=== PATIENT | male | born 1995 | race Caucasian/White ===

== ENCOUNTER → 2022-09-04 13:56 | Outpatient (CLI) | payer MEDICAID, SELFPAY ==
--- NOTE | 2022-09-04 14:43 | CA_ITS ---
APPROVED REPORT Exam: Exercise Treadmill Technologist: Wendy Olea, Ht: 6 ft 0 in Wt: 278 lbs BSA: 2.45 m2 HR: 92 bpm BP: 147/91 mmHg Medical History Medications: Bystolic,,,,, Stress Test Details Test: Fabian HR Resting HR: 100 bpm Max Heart Rate (APMHR): 195.831685 bpm Max HR Achieved: 138 bpm Target HR (85% APMHR): 165.904802 bpm % of APMHR: 70.77 Recovery HR: 98 bpm BP Resting BP: 139.0/89.0 mmHg Max BP: 160.0/75.0 mmHg Recovery BP: 139.0/91.0 mmHg ECG Resting ECG: NSR, 1*AVB Clinical Exercise duration: 08:42 min Highest Stage Achieved: Exercise capacity: 10.1 METs Stress ECG Conclusion Walked 8:42 on Fabian Protocol Max HR: 138 % of PM: 71% Max BP: 160/75 METs: 10.1 Test stopped due to: SOA, Fatigue Symptoms: No CP. Arrhythmias/Ectopy: Rare fusion beat. ST-T Changes: Allowing for motion artifact, the ST response to exercise is within normal. Conclusion: Normal GXT to HR achieved (71% of PM). Blunted HR response on beta amanda. GXT only (no imaging). Test Summary REST . . . . . . . Sitting REST . . . . . . . Standing REST 03:38 0.0 0.0 100 . 139/ 89 . . Stage 1 01:00 10.0 1.7 118 . . . . Stage 1 02:00 10.0 1.7 118 . . . . Stage 1 03:00 10.0 1.7 118 . 154/ 75 . . Stage 2 01:00 12.0 2.5 124 . . . . Stage 2 02:00 12.0 2.5 126 . . . . Stage 2 03:00 12.0 2.5 124 . 158/ 74 . . Stage 3 01:00 14.0 3.4 131 . . . . Stage 3 02:00 14.0 3.4 138 . . . . Stage 3 02:42 14.0 3.4 138 . . . Stop exercise at 08:42 RECOVERY 01:00 0.0 0.0 133 . 160/ 75 . . RECOVERY 02:00 0.0 0.0 103 . 160/ 75 . . RECOVERY 03:00 0.0 0.0 101 . 147/ 90 . . RECOVERY 04:00 0.0 0.0 99 . 141/ 93 . . RECOVERY 05:00 0.0 0.0 98 . 139/ 91 . . RECOVERY 05:30 0.0 0.0 99 . 139/ 91 . . Electronically signed by : Arnol Miranda MD 09/08/2022 10:45:40
== END ==
PROVIDERS: PCP Family Medicine; Visit Provider Nurse Practitioner Family
DX: R07.89 Other chest pain (principal); I10 Essential (primary) hypertension; Z72.0 Tobacco use
CPT/HCPCS: 93017

== ENCOUNTER → 2022-10-08 08:47 | Outpatient (CLI) | payer MEDICAID, SELFPAY | PROVIDERS: PCP Family Medicine; Visit Provider Family Medicine | DX: I51.7 Cardiomegaly (principal) | CPT/HCPCS: 93306 ==